=== PATIENT | male | born 1950 | race Caucasian/White ===

== ENCOUNTER 2020-07-03 12:10 | Outpatient (CLI) | payer OTHER | END 2020-07-03 23:59 | disposition home or self-care (01) | LOC: COV 12:10 | PROVIDERS: ATTEND Physician Assistant | DX: Z01.812 Encounter for preprocedural laboratory examination (principal); Z20.822 Contact with and (suspected) exposure to COVID-19 ==

== ENCOUNTER 2022-07-04 13:27 | Outpatient (CLI) | payer OTHER ==
--- NOTE | 2022-07-05 16:01 | Ultrasound Report ---
PROCEDURE: Retroperitoneal INDICATIONS: CKD TECHNIQUE: Real-time scanning was performed of the retroperitoneal organs, with image documentation. COMPARISON: None. FINDINGS: Kidneys: Kidneys are mildly atrophic and size. Right kidney measures 10.5 cm long; left kidney royal ures 1.9 cm long. Right renal cortical thickness is 0.1 cm; left renal cortical thickness is 0.7 cm. No hydronephrosis. Hypoechoic focus in the superior right upper renal pole measuring 9 x 6 x 8 mm. Bladder: Pre-void bladder volume is 91 mL. Post-void residual is 26 mL. Pre-void images demonstrat e no intraluminal masses or stones. On pre-void images, both ureteral jets are noted with color Dopp ler interrogation. (Of note, ureteral jets may not be detectable in up to 25% of cases due to insuff icient differences in specific gravity between ureteral and bladder urine). Prostate measures 4.6 x 5.2 x 6.1 cm. Miscellaneous: No free abdominal fluid. IMPRESSION: Mild post void residual. Subcentimeter hypoechoic focus within the superior right renal pole suggestive of simple cyst. Reviewed by: Mi Stephens MD on 07/05/2022 4:00 PM PDT Approved by: Mi Stephens MD on 07/05/2022 4:00 PM PDT Station ID: [id number]
== END 2022-07-04 13:28 | disposition home or self-care (01) ==
LOC: DI 13:27
PROVIDERS: ATTEND Internal Medicine
DX: N18.2 Chronic kidney disease, stage 2 (mild) (principal)